=== PATIENT | female | born 1970 | race African-American/Black ===

== ENCOUNTER 2024-07-24 03:47 | Outpatient (CLI) | payer BC, SELFPAY ==
[2024-07-28 12:09] LABS: TB Interpretation Negative (Negative)
== END 2024-07-24 03:48 | disposition home or self-care (01) ==
PROVIDERS: Visit Provider Nurse Practitioner Gerontology
DX: R76.12 Nonspecific reaction to cell mediated immunity measurement of gamma interferon antigen response without active tuberculosis (principal)
CPT/HCPCS: 36415; 86480